=== PATIENT | female | born 1955 | race Caucasian/White ===

== ENCOUNTER 2016-07-04 17:08 | Observation (INO) | payer OTHER ==
[~2016-07-04] VITALS: Ht 162.6 cm; Wt 89.0 kg
[~2016-07-04 17:08] MED LIST: ALBU18HF IH; AMLO-147 PO; ASPI-805 PO; ATOR40TA68 PO; BUPR100T14 PO; CALC600T PO; CARV12.579 PO; CHOL2000 PO; CLOP75TA4 PO; GABA300C16 PO; GLIM4TAB PO; LEVO50TA74 PO; LISI20TA11 PO; METF1000 PO; METO10TA92 PO; OMEP40CA6 PO; RISP1TAB3 PO; SITA50TA2 PO
[2016-07-04] MEDS ORDERED: METHYLPREDNISOLONE 125 MG INJ IV STA (17:55)
[2016-07-04] MEDS ORDERED: ONDANSETRON 4 MG INJ IV STA (17:55)
[2016-07-04] MEDS ORDERED: IPRATROPIUM (NEB) 0.5 MG/2.5 ML AMP NEB STA (17:55)
[2016-07-04] MEDS ORDERED: HYDROmorphONE 1 MG/ML SYG IV STA (17:55)
[2016-07-04] MEDS ORDERED: ALBUTEROL 0.083% (NEB) 2.5 MG/3 ML AMP NEB STA (17:55)
[2016-07-04 18:25] LABS: ADD SCAN DIFF NO
[2016-07-04 18:27] LABS: BASOPHIL # 0.1 10^3/ul (0.0-0.1); BASOPHILS % 0.4 % (0.0-2.0); EOSINOPHILS # 0.1 10^3/ul (0.0-0.5); EOSINOPHILS % 0.6 % (0.0-7.0); HEMATOCRIT 45.5 % (37.0-47.0); HEMOGLOBIN 14.8 g/dl (12.0-16.0); LYMPHOCYTES % 23.9 % (15.0-51.0); MEAN CORPUSCULAR HEMOGLOBIN 29.3 pg (29.0-33.0); MEAN CORPUSCULAR HGB CONC 32.5 g/dl (32.0-37.0); MEAN CORPUSCULAR VOLUME 90.1 fl (82.0-101.0); MEAN PLATELET VOLUME 11.9 fl (7.4-10.4); MONOCYTE # 1.4 10^3/ul (0.3-0.9); MONOCYTES % 8.1 % (0.0-11.0); NEUTROPHIL # 11.3 10^3/ul (1.6-7.5); NEUTROPHILS % 66.6 % (39.0-77.0); PLATELET COUNT 371 10^3/UL (140-415); RED BLOOD COUNT 5.05 10^6/ul (4.20-5.40); RED CELL DISTRIBUTION WIDTH 13.6 % (11.5-14.5); WHITE BLOOD COUNT 16.9 10^3/ul (4.8-10.8)
[2016-07-04 18:39] LABS: CHLORIDE 102 mmol/L (97-110); POTASSIUM 4.3 mmol/L (3.5-5.1); SODIUM 139 mmol/L (135-144)
[2016-07-04 18:41] LABS: ALBUMIN/GLOBULIN RATIO 1.17; ANION GAP 17 (8-16); ASPARTATE AMINO TRANSFERASE 27 IU/L (15-46); BILIRUBIN,INDIRECT 0.2 mg/dl (0-1.1); BILIRUBIN,TOTAL 0.2 mg/dl (0.2-1.3); CARBON DIOXIDE 24 mmol/L (21-31); CREATININE 1.12 mg/dl (0.44-1.00); TOTAL PROTEIN 7.4 g/dl (6.1-8.1)
[2016-07-04 18:42] LABS: ALANINE AMINOTRANSFERASE 23 IU/L (13-69); ALKALINE PHOSPHATASE 63 IU/L (42-121); BLOOD UREA NITROGEN 20 mg/dl (7-20); CALCIUM 10.7 mg/dl (8.4-10.2); GLUCOSE 180 mg/dl (70-220)
[2016-07-04 18:49] LABS: B-TYPE NATRIURETIC PEPTIDE 108 PG/ML (0-125)
[2016-07-04] MEDS ORDERED: IOHEXOL 100 ML ONE (19:02)
[2016-07-04] MEDS ORDERED: SOD CHLORIDE 0.9% 100 ML ONE (19:02)
[2016-07-04 19:11] LABS: TROPONIN-I < 0.012 ng/ml (0.00-0.12)
--- NOTE | 2016-07-04 19:24 | RADRPT ---
PROCEDURE: US right upper quadrant CLINICAL INDICATION: Abdominal pain TECHNIQUE: Multiple real-time images were acquired of the patient's right upper abdomen utilizing a high resolution transducer. COMPARISON: None available FINDINGS: Liver: Increased echogenicity and enlarged with normal contour no evidence of mass or ductal dilata tion. Normal directional blood flow is seen within the patent main portal vein. The maximum dimensio n estimated at 21.3 cm . Gallbladder: Normal. No sonographic Romero's sign is reported. Common bile duct: Normal; 2.3 mm. There is no evidence for choledocholithiasis. Right Kidney: Normal; maximum length measured at approximately 11.5 cm. Pancreas: Obscured by bowel gas. RPTAT:HJJR IMPRESSION: 1. Hepatomegaly hepatic steatosis. 2. Unremarkable gallbladder. 3. Bowel gas obscures evaluation of the pancreas. Physician Deena Date Time Electronically viewed and signed by Physician Deena on 07/04/2016 19:23 /
[2016-07-04] MEDS ORDERED: ASPI81TA16 PO (19:51)
[2016-07-04] MEDS ORDERED: IBUP800T25 PO (19:54)
[2016-07-04] MEDS ORDERED: PANT40TA3 PO (19:57)
[2016-07-04] MEDS ORDERED: SITA100T8 PO (19:58)
[2016-07-04] MEDS ORDERED: MULT-761 PO (19:59)
[2016-07-04] MEDS ORDERED: CALC-277 PO (20:00)
[2016-07-04] MEDS ORDERED: AMLO5TAB4 PO (20:02)
[2016-07-04] MEDS ORDERED: MONT10TA24 PO (20:03)
[2016-07-04] MEDS ORDERED: GLIM2TAB PO (20:04)
[2016-07-04] MEDS ORDERED: ALPR1TAB7 PO (20:05)
[2016-07-04] MEDS ORDERED: ALBU18HF INHALATION (20:07)
--- NOTE | 2016-07-04 20:29 | RADRPT ---
PROCEDURE: CT Pulmonary Angiogram CLINICAL INDICATION: Chest pain, short of breath TECHNIQUE: Volumetric acquisition of the thorax was performed following the intravenous administra tion of contrast with the bolus of contrast time to maximize pulmonary artery opacification. One or more of the following dose reduction techniques were used: - Automated exposure control. - Adjustment of the mA and/or kV according to patient size. - Use of iterative reconstruction technique. Radiation Dose: CTDI = 111.57 mGy; DLP = 775.69 mGy-cm. COMPARISON: None. FINDINGS: Pulmonary Arteries: There is no intrinsic filling defect seen within the pulmonary arteries to sugge st pulmonary embolization. Other cardiovascular structures: The heart is normal in size. There is left ventricular hypertrophy .. The aorta appears intact and normal in caliber. Lung stone: The lung stone are clear with no nodule, infiltrate, or interstitial prominence. There is an accessory azygos lobe. The pleural spaces: No effusion or pneumothorax is identified. Lymph nodes: No pathologically enlarged nodes are evident. Thyroid: Unremarkable. Superior abdominal structures: No significant abnormality is evident. Osseous structures: Degenerative endplate changes are seen diffusely in the spine. IMPRESSION: 1. No evidence of pulmonary embolization. There is left ventricular hypertrophy without cardiomega ly. The aorta is normal in caliber and appears intact. 2. The lung stone and pleural spaces are clear. There is an accessory azygos lobe. 3. Mild degenerative spine changes. Physician Nael Date Time Electronically viewed and signed by Physician Nael on 07/04/2016 20:28 /
[2016-07-04] MEDS ORDERED: SOD CHLORIDE 0.9% 1,000 ML IV SCH (20:53)
--- NOTE | 2016-07-04 20:59 | ERA ---
ER Documentation Chief Complaint Date/Time DATE: 07/04/16 TIME: 20:55 Chief Complaint cp,ap,diarrhea since wednesday HPI This is a 61-year-old female who complains that 2-1/2 days ago she had a very sharp sudden right sided "lung" pain with some shortness of breath. She says since that time she has had some heavy pressure on her chest with some shortness of breath and exertional dyspnea. She said that she was told she has a mixture of asthma/COPD/emphysema by her cloth feeder but that he was not sure what she really had. She is at baseline she is not short of breath and has no exertional dyspnea. She says she has a chronic leukocytosis that is getting worked up over the past 2 years and it is not been able to be determined why she has elevated white blood count. The patient is COMPLAINING of some right upper quadrant pain with some diarrhea for the past 2 days. She says the pain in her right back is now gone but it was sharp and pleuritic initially. She states she has no vomiting nausea no cough no fever ROS All systems reviewed and are negative except as per history of present illness. Medications Home Meds Reported Medications Albuterol Sulfate* (Ventolin HFA*) 18 Gm Hfa.aer.ad, 2 PUFF INHALATION NEEDED , #1 INHALER 07/04/16 Alprazolam* (Alprazolam*) 1 Mg Tablet, 1 MG PO TID, TAB 07/04/16 Glimepiride* (Glimepiride*) 2 Mg Tablet, 2 MG PO WITH BREAKFAST, TAB 07/04/16 Montelukast Sodium* (Montelukast Sodium*) 10 Mg Tablet, 10 MG PO QHS, #30 TAB 07/04/16 Amlodipine Besylate* (Norvasc*) 5 Mg Tablet, 5 MG PO BID, TAB 07/04/16 Calcium Carbonate/Vitamin D3 (OYSTER SHELL 500 MG + VIT D TB) 1 Each Tablet, 1 EACH PO, TAB 07/04/16 Multivitamin (MULTI VITAMIN DAILY) 1 Each Tablet, 1 TAB PO DAILY, TAB 07/04/16 Sitagliptin* (Januvia*) 100 Mg Tablet, 100 MG PO DAILY, #30 TAB 07/04/16 Pantoprazole* (Protonix*) 40 Mg Tablet.dr, 40 MG PO DAILY, TAB 07/04/16 Aspirin (LOW DOSE ASPIRIN EC) 81 Mg Tablet.dr, 81 MG PO DAILY, #30 TAB 07/04/16 Risperidone* (Risperidone*) 1 Mg Tablet, 1 MG PO HS, TAB 10/25/14 Levothyroxine Sodium* (Levothyroxine Sodium*) 50 Mcg Tablet, 50 MCG PO AC BREAKFAST, TAB 10/25/14 Cholecalciferol* (Vitamin D3*) 2,000 Unit Cap, 2000 UNIT PO DAILY, CAP 10/25/14 Omeprazole* (Omeprazole*) 40 Mg Capsule.dr, 40 MG PO DAILY, CAP 10/25/14 Atorvastatin* (Atorvastatin*) 40 Mg Tablet, 40 MG PO HS, TAB 10/25/14 Metformin Hcl* (Metformin Hcl*) 1,000 Mg Tablet, 1000 MG PO WITH BREAKFAST, TAB 10/25/14 Clopidogrel Bisulfate* (Clopidogrel Bisulfate*) 75 Mg Tablet, 75 MG PO DAILY, TAB 10/25/14 Lisinopril* (Lisinopril*) 20 Mg Tablet, 20 MG PO DAILY, TAB 10/25/14 Carvedilol* (Carvedilol*) 12.5 Mg Tablet, 12.5 MG PO BID, TAB 10/25/14 Discontinued Reported Medications Ibuprofen* (Ibuprofen*) 800 Mg Tab, 800 MG PO TID, TAB 07/04/16 Calcium Carbonate (Oyster Shell Calcium) 600 Mg Tablet, 600 MG PO 10/25/14 Risperidone* (Risperidone*) 1 Mg Tablet, 1 MG PO HS, TAB 10/25/14 Bupropion Hcl* (Bupropion Hcl*) 100 Mg Tablet, 100 MG PO BID, TAB 10/25/14 Glimepiride* (Glimepiride*) 4 Mg Tablet, 4 MG PO WITH BREAKFAST, TAB 10/25/14 Sitagliptin* (Januvia*) 50 Mg Tablet, 50 MG PO DAILY, TAB 10/25/14 Aspirin* (Trimble Aspirin*) 81 Mg Tab.chew, 81 MG PO DAILY, TAB.CHEW 10/25/14 Metoclopramide* (Reglan*) 10 Mg Tablet, 10 MG PO Q6H Y for NAUSEA AND OR VOMITING, TAB 10/25/14 Amlodipine Besylate* (Amlodipine Besylate*) 10 Mg Tablet, 10 MG PO DAILY, TAB 10/25/14 Gabapentin* (Gabapentin*) 300 Mg Capsule, 300 MG PO TID, CAP 10/25/14 Glimepiride* (Glimepiride*) 4 Mg Tablet, 4 MG PO WITH BREAKFAST, TAB 10/25/14 Omeprazole* (Omeprazole*) 40 Mg Capsule.dr, 40 MG PO DAILY, CAP 10/25/14 Albuterol Sulfate* (Ventolin HFA*) 18 Gm Hfa.aer.ad, 2 PUFF IH Q4H Y for WHEEZING AND RESP DISTRESS, EA 10/25/14 Allergies Allergies: Coded Allergies: No Known Allergy (Unverified , 07/04/16) PMhx/Soc History of Surgery: Yes (, CARDIAC CATHETERIZATION 1 YR AGO, TOES REMOVED 20 YEARS AGO) Anesthesia Reaction: No Hx Neurological Disorder: Yes (NUMBNESS IN LEFT ARM) Hx Respiratory Disorders: No Hx Cardiac Disorders: Yes (HTN, "PRESSURE IN HEART") Hx Psychiatric Problems: Yes (DEPRESSION) Hx Miscellaneous Medical Probl: No Hx Alcohol Use: No Hx Substance Use: No Hx Tobacco Use: No Smoking Status: Never smoker FmHx Family History: No coronary disease Physical Exam Vitals Vital Signs Date Time Temp Pulse Resp B/P Pulse Ox O2 Delivery O2 Flow Rate FiO2 07/04/16 18:11 78 18 98 21 07/04/16 17:14 98.1 78 18 129/77 98 Physical Exam Const: Well-developed, well-nourished Head: Atraumatic, normocephalic Eyes: Normal Conjunctiva, PERRLA, EOMI, normal sclera, no nystagmus ENT: Normal External Ears, Nose and Mouth, moist mucus membranes. Neck: Full range of motion. No meningismus, no lymphadenopathy. Resp: Clear to auscultation bilaterally with somewhat distant breath sounds, no wheezing, rhonchi, rales Cardio: Regular rate and rhythm, no murmurs, S1 S2 present Abd: Soft, mild right upper quadrant tenderness to palpation, non distended. Normal bowel sounds, no guarding or rebound, no pulsitile abdominal masses or bruits Skin: No petechiae or rashes, no ecchymosis , no maculopapular rash Back: No midline or flank tenderness Ext: No cyanosis, or edema, FROM x 4, normal inspection, neurovascularly intact x 4 Neur: Awake and alert, STR 5/5 x 4, sensation intact x 4, no focal findings, cerebellum intact Psych: Normal Mood and Affect, bit anxious Result Diagram: 07/04/16181707/04/161817 Results 24 hrs Laboratory Tests Test 07/04/16 18:18 White Blood Count 16.910^3/ul Red Blood Count 5.0510^6/ul Hemoglobin 14.8g/dl Hematocrit 45.5% Mean Corpuscular Volume 90.1fl Mean Corpuscular Hemoglobin 29.3pg Mean Corpuscular Hemoglobin Concent 32.5g/dl Red Cell Distribution Width 13.6% Platelet Count 44068^3/UL Mean Platelet Volume 11.9fl Neutrophils % 66.6% Lymphocytes % 23.9% Monocytes % 8.1% Eosinophils % 0.6% Basophils % 0.4% Nucleated Red Blood Cells % 0.0/100WBC Neutrophils # 11.310^3/ul Lymphocytes # 4.010^3/ul Monocytes # 1.410^3/ul Eosinophils # 0.110^3/ul Basophils # 0.110^3/ul Nucleated Red Blood Cells # 0.010^3/ul Sodium Level 139mmol/L Potassium Level 4.3mmol/L Chloride Level 102mmol/L Carbon Dioxide Level 24mmol/L Anion Gap 17 Blood Urea Nitrogen 20mg/dl Creatinine 1.12mg/dl Glucose Level 180mg/dl Calcium Level 10.7mg/dl Total Bilirubin 0.2mg/dl Direct Bilirubin 0.00mg/dl Indirect Bilirubin 0.2mg/dl Aspartate Amino Transf (AST/SGOT) 27IU/L Alanine Aminotransferase (ALT/SGPT) 23IU/L Alkaline Phosphatase 63IU/L Troponin I < 0.012ng/ml B-Type Natriuretic Peptide 108PG/ML Total Protein 7.4g/dl Albumin 4.0g/dl Globulin 3.40g/dl Albumin/Globulin Ratio 1.17 Lipase 71U/L Current Medications Medications (Trade) Dose Ordered Sig/Lico Route PRN Reason Start Time Stop Time Status Last Admin Dose Admin Albuterol (Proventil 0.083% (Neb)) 7.5 mg ONCE STAT NEB 07/04/16 17:55 07/04/16 18:00 DC 07/04/16 18:10 Ipratropium [place] (Atrovent 0.02% (Neb)) 1.5 mg ONCE STAT NEB 07/04/16 17:55 07/04/16 18:00 DC 07/04/16 18:10 Methylprednisolone Sodium Succinate (Solu-Medrol) 125 mg ONCE STAT IV 07/04/16 17:55 07/04/16 18:00 DC 07/04/16 18:13 Hydromorphone HCl (Dilaudid) 1 mg ONCE STAT IV 07/04/16 17:55 07/04/16 18:00 DC 07/04/16 18:14 Ondansetron HCl 4 mg 4 mg ONCE STAT IV 07/04/16 17:55 07/04/16 18:00 DC 07/04/16 18:13 Iohexol 100 ml @ ud STK-MED ONCE .ROUTE 07/04/16 19:02 07/04/16 19:03 DC Sodium Chloride (NS) 100 ml @ ud STK-MED ONCE .ROUTE 07/04/16 19:02 07/04/16 19:03 DC Procedures/MDM PROCEDURE: CT Pulmonary Angiogram CLINICAL INDICATION: Chest pain, short of breath TECHNIQUE: Volumetric acquisition of the thorax was performed following the intravenous administration of contrast with the bolus of contrast time to maximize pulmonary artery opacification. One or more of the following dose reduction techniques were used: - Automated exposure control. - Adjustment of the mA and/or kV according to patient size. - Use of iterative reconstruction technique. Radiation Dose: CTDI = 111.57 mGy; DLP = 775.69 mGy-cm. COMPARISON: None. FINDINGS: Pulmonary Arteries: There is no intrinsic filling defect seen within the pulmonary arteries to suggest pulmonary embolization. Other cardiovascular structures: The heart is normal in size. There is left ventricular hypertrophy.. The aorta appears intact and normal in caliber. Lung stone: The lung stone are clear with no nodule, infiltrate, or interstitial prominence. There is an accessory azygos lobe. The pleural spaces: No effusion or pneumothorax is identified. Lymph nodes: No pathologically enlarged nodes are evident. Thyroid: Unremarkable. Superior abdominal structures: No significant abnormality is evident. Osseous structures: Degenerative endplate changes are seen diffusely in the spine. IMPRESSION: 1. No evidence of pulmonary embolization. There is left ventricular hypertrophy without cardiomegaly. The aorta is normal in caliber and appears intact. 2. The lung stone and pleural spaces are clear. There is an accessory azygos lobe. 3. Mild degenerative spine changes. Josr Sky Physician Date Time Electronically viewed and signed by Physician Nael on 07/04/2016 20:28 RH/ CC: BRISEIDA ALEMAN DO PROCEDURE: US right upper quadrant CLINICAL INDICATION: Abdominal pain TECHNIQUE: Multiple real-time images were acquired of the patient's right upper abdomen utilizing a high resolution transducer. COMPARISON: None available FINDINGS: Liver: Increased echogenicity and enlarged with normal contour no evidence of mass or ductal dilatation. Normal directional blood flow is seen within the patent main portal vein. The maximum dimension estimated at 21.3 cm . Gallbladder: Normal. No sonographic Romero's sign is reported. Common bile duct: Normal; 2.3 mm. There is no evidence for choledocholithiasis. Right Kidney: Normal; maximum length measured at approximately 11.5 cm. Pancreas: Obscured by bowel gas. RPTAT:HJJR IMPRESSION: 1. Hepatomegaly hepatic steatosis. 2. Unremarkable gallbladder. 3. Bowel gas obscures evaluation of the pancreas. Adeel Charlton Physician Date Time Electronically viewed and signed by Physician Deena on 07/04/2016 19:23 JR/ CC: BRISEIDA ALEMAN DO EKG: Rate/Rhythm: Normal Sinus Rhythm,NL intervals QRS, ST, QT: NORMAL [place], QRS, QT] Impression: NORMAL EKG Patient's pain shows no signs of PE no pneumonia. White blood count 16.9 which is consistent with her chronic leukocytosis. She is says she is short of breath more than usual having some chest pain will rule out TX as well as work on her lungs with some breathing treatments per Patient's symptoms are concerning for cardiac cause will require inpatient workup and continuous monitoring. Further w/u for ischemia, arrhythmia, PE or dissection will be deferred to the inpatient team. Accepting Care Team: Current data and ongoing care discussed. Time: Time of admission Primary Provider: [XOXOXO] Consulting: [XOXOXO] Outstanding Data: none Departure Diagnosis: Primary Impression: Chest pain Qualified Code: R07.9 - Chest pain, unspecified type Additional Impressions: Dyspnea Qualified Code: R06.09 - Dyspnea on exertion Diarrhea Qualified Code: R19.7 - Diarrhea, unspecified type Condition: Stable BRISEIDA ALEMAN DO Jul 04, 2016 20:59
[2016-07-04] MEDS ORDERED: ONDANSETRON 4 MG INJ IV PRN (21:00)
[2016-07-04] MEDS ORDERED: ACETAMINOPHEN 325 MG TAB PO PRN ×2 (21:00→21:30)
[2016-07-04] MEDS ORDERED: ALBUTEROL/IPRATROPIUM (NEB) 3 ML AMP HHN STA (21:22)
--- NOTE | 2016-07-04 21:26 | HP ---
Date/Time of Note Date/Time of Note DATE: 07/04/16 TIME: 21:22 Assessment/Plan VTE Prophylaxis VTE Prophylaxis Intervention: other (Lovenox) Assessment/Plan Assessment/Plan 1) Chest Pain - likely musculoskeletal source, aggravated by anxiety, based on my exam - Admit to Telemetry - Serial Enzymes and repeat EKG in AM - doubt Cardiac - AM Labs: CBC, BMP, Magnesium - CONSULT: Cardiology - Dr. Lloyd . . . consider whether patient should have a 3rd Cardiac Cath or continue with medical management, or perhaps another test 2) Dyspnea - likely due to COPD and Anxiety - DuoNebs QID - Levalbuteral Nebs Q 2 hours prn SOB or Wheeze 3) Anxiety and Insomnia - Patient is educated to take deep breaths in through her nose and out through her mouth if she feels anxious or nervous. - Ativan 2 mg at HS prn Insomnia . . . should help with her Anxiety in general - Additional Ativan during the day as needed for flares of Anxiety 4) Diarrhea - of unknown significance. I suspect it is more psychosomatic rather than pathological, maybe even just a sensitive gastrocolic reflex - Monitor 3) Diabetes Mellitus, unknown control - HgbA1c in AM - Constant Carb Diet - AccuCheks AC and HS - Resume Home meds except Januvia will have to be subsituted by the Pharmacy or patient can be on an Insulin Sliding Scale 5) Hypertension, seems controlled on current regimen - Continue Current Medications 6) Hypothyroidism - Continue Levothyroxine 50 mcg daily - TSH in AM HPI/ROS Admit Date/Time Admit Date/Time 07/04/162052 Hx of Present Illness Chief Complaint cp,ap,diarrhea since wednesday HPI Patient presents with multiple complaints. She is a very difficult historian as when I ask her questions about her first concern, she immediately starts talking about her next concern and so on. I needed to re-focus her several times so that I could take her history. It seems that she had pain in the right side of her chest, worse when taking a breath, for the past 6 days. Friends kept telling her to be seen by a doctor. The pain went away for 1 day. In the past 24 hours, the pain started on the left side of her chest and now on the right side again. No injury. Pain is aggravated with deep breaths. Very concerned as there is "a blockage in my heart". I had reviewed the previous records and saw that patient had an angiogram in October 2014, but it was inconclusive as reported by Dr. MUSA CROOK MD, in his dictated words: "The procedure was not completed due to the fact that it was extremely difficult to maneuver the catheter. The patient's procedure will require to be redone through the groin. However, the patient refused. As a result, the patient was discharged home. From what I was able to visualize, which was not conclusive because it was only in 1 view, it appeared that the patient had a patent left main as well as a patent left anterior descending; however, it was not fully engaged. As a result, it is inconclusive at this point. IMPRESSION: Inconclusive results from left heart catheterization. The patient is required to have another left heart catheterization from the groin access." Patient tells me that she had a prior angiogram at [facility] , but they too, were unable to complete the procedure. Patient complains of difficulty breathing, hard to catch her breath. Hard to take a deep breath. Occasional dry cough. No fever or chills. She was seen once by a [employer] who told her that she could have Asthma, COPD or Emphysema, but that he wasn't sure. When I talked to patient about getting breathing treatments, she wondered why, and as I tried to explain about her lung problems , she stated she is not sure that she has any as she does not think that [employer] knew what he was doing because he couldn't tell her what she had. I suggested to her that based on her smoking daily since she was 11 years old that we can assume she at least has COPD and treat her for that. She told me her lungs are fine and that she never had problems with them before. I pointed out that smoking causes cumulative and on-going damage and that it would be a good idea to be treated while we work-up and manage her other concerns. She also complains of watery diarrhea every time she eats for the past 2 days. There is no blood or mucus in it. She has not had any fever or chills and she has no history of IBS or frequent or alternating diarrhea and/or constipation. She complained of right upper quadrant pain to the ER Physician and a Gallbladder Ultrasound was performed: NEGATIVE. No nausea or vomiting She complains about always being sick and wonders why. She complains that she is on so many medication - her diabetes is "bad" but she does not know what a Hgb A1c is, let alone what hers is. She talks about how bad her blood pressure is and all the medications she is on and about the blockage in her heart. I asked her about how she knew there was a blockage, and she brought up the angiograms. I reminded her that they were inconclusive. I asked patient how long has she been sick. She said since 2009. I asked her what happened then. She states her son was killed in 2002 and she was laid off in 2009. I talked to her about stress and anxiety having physical manifestations. I reminded how I was able to palpate her chest wall and reproduce the pain she was sure was coming from her heart and lungs. I talked to her about anxiety and panic having overlapping symptoms with heart attacks and that any of the symptoms, from whatever cause, can trigger anxiety and the symptoms snowball. She said "but I am not crazy". I reassured her that was not what I was saying . . . just that emotions and stress that are difficult to manage often present themselves with physical manifestations. I reassured patient that while we are looking into medical causes for her symptoms, we may find that some, many or all may be psychosomatic. I confirmed with her that she knew what that word meant. Meanwhile, I told patient that she should get a good night's sleep, so I will give her some medication. She states that she can fall asleep but that she wakes up. I offered her Restoril, and she told me that it didn't work. She didn' t know if it was the max, 30 mg, but that she didn't want to try it. She has some Xanax that was recently prescribed. I suggested 2 mg of Ativan at HS prn Insomnia. She said again that she falls asleep fine, but wakes up later. I reminded her that I had told her that she is a very anxious person. I tried to persuade her to relax. to know that she is being evaluated medically and that there is good news in knowing that the pain she has been experiencing lately is not due to her heart and I wished her a good night. Also, per the ER doctor, patient states her white count is always elevated, but over 2 years, no one has figured out why. I did not bring up this topic with her as we already talked extensively about the issues that brought her into the ER tonight. ROS General: Admits: Denies: Fever, Chills, Poor Appetite, Generalized Body Aches Eyes: Admits: Intermittent Blurry Vision and/or Spots in her vision (I told her those can happen when her sugar fluctuates Denies: Double Vision HENT: Admits: Right Ear Prssure, Stuffy Nose Denies: Ear Pain, Runny Nose, Sore Throat Cardiovascular: Admits: Chest Pain, Palpitations Denies: Leg Swelling Pulmonary: Admits: Cough, Shortness of Breath Denies: Wheeze Gastrointestinal: Admits: Abdominal Pain, Diarrhea Denies: Nausea, Vomiting, Blood in Stool, Black- Colored Stool (I asked patient if she ever had a colonoscopy and she immediately said "no, I don't want one". I told her I was only asking her a question.) Urogenital: Admits: Denies: Burning with Urination, Urinary Frequency Musculoskeletal: Admits: Denies: Joint Pain, Joint Swelling, Muscle Pain Neurological: Admits: Denies: Headache, Dizziness, Numbness, Tingling, Shooting Pains Integumentary: Admits: Denies: Rash, Itch Endocrine: Admits: Denies: Excessive Thirst, Excessive Hunger, Intolerant to Cold , Intolerant to Heat Psychiatric: Admits: Anxiety, Depression Denies: PMH/Family/Social Past Medical History DM; HTN; Dyslipidemia; Hypothyroidism; Depression Past Surgical History Section; Cardiac Catheterization on 10/25/14 (records reviewed: IMPRESSION: Inconclusive results from left heart catheterization. The patient is required to have another left heart catheterization from the groin access. Toes Removed 20 years Ago Social History Alcohol Use: none Smoking Status: Current every day smoker (1/2 ppd since age 11 (less when she is sick) = 25 pack-year history) Drug Use: none Exam/Review of Systems Vital Signs Vitals Vital Signs Date Time Temp Pulse Resp B/P Pulse Ox O2 Delivery O2 Flow Rate FiO2 07/04/16 21:14 63 18 117/97 98 Room Air 07/04/16 18:11 21 07/04/16 17:14 98.1 Exam Exam General: Overweight female who is in mild to moderate distress due to feeling anxious about her conditions, Alert and oriented. In no acute distress. Eyes: Sclera White, EOMI HENT: Normocephalic/Atraumatic, External Ears/Nose Normal, Moist Mucus Membranes Neck: Supple, Trachea Midline Cardiovascular: Normal Rate, Normal Rhythm, Normal S1 and S2, No Murmur, No Extra Sounds. No pedal edema. Radial and Dorsalis Pedis Pulses +2/4 and regular. Pulmonary: Decreased airflow throughout notable for coarse breath sounds. Normal Respiratory Effort, No Rales, Rhonchi or Wheezes Gastrointestinal: Normoactive Bowel Sounds, Soft, Mild generalized tenderness, upper worse than lower. No guarding or rebound. Non-Distended, No Hepatosplenomegaly Appreciated, No Pulsatile Masses Urogenital: Deferred Musculoskeletal: Normal Muscle Bulk and Tone. Reproducible chest pain with palpation over the sore areas of her chest wall, both on the right and left. Neurological: CN II - XII Grossly Intact, Non-Focal, Speech Normal Integumentary: Normal Moisture and Temperature, Good Turgor, No Jaundice, No Rash. No bruising Lymphatic: No Cervical Lymphadenopathy Psychiatric: Anxious Mood and Appropriate Affect, Good Eye Contact Labs Result Diagram: 07/04/16181707/04/161817 Medications Medications Home Meds Reported Medications Albuterol Sulfate* (Ventolin HFA*) 18 Gm Hfa.aer.ad, 2 PUFF INHALATION NEEDED , #1 INHALER 07/04/16 Alprazolam* (Alprazolam*) 1 Mg Tablet, 1 MG PO TID, TAB 07/04/16 Glimepiride* (Glimepiride*) 2 Mg Tablet, 2 MG PO WITH BREAKFAST, TAB 07/04/16 Montelukast Sodium* (Montelukast Sodium*) 10 Mg Tablet, 10 MG PO QHS, #30 TAB 07/04/16 Amlodipine Besylate* (Norvasc*) 5 Mg Tablet, 5 MG PO BID, TAB 07/04/16 Calcium Carbonate/Vitamin D3 (OYSTER SHELL 500 MG + VIT D TB) 1 Each Tablet, 1 EACH PO, TAB 07/04/16 Multivitamin (MULTI VITAMIN DAILY) 1 Each Tablet, 1 TAB PO DAILY, TAB 07/04/16 Sitagliptin* (Januvia*) 100 Mg Tablet, 100 MG PO DAILY, #30 TAB 07/04/16 Pantoprazole* (Protonix*) 40 Mg Tablet.dr, 40 MG PO DAILY, TAB 07/04/16 Aspirin (LOW DOSE ASPIRIN EC) 81 Mg Tablet.dr, 81 MG PO DAILY, #30 TAB 07/04/16 Risperidone* (Risperidone*) 1 Mg Tablet, 1 MG PO HS, TAB 10/25/14 Levothyroxine Sodium* (Levothyroxine Sodium*) 50 Mcg Tablet, 50 MCG PO AC BREAKFAST, TAB 10/25/14 Cholecalciferol* (Vitamin D3*) 2,000 Unit Cap, 2000 UNIT PO DAILY, CAP 10/25/14 Omeprazole* (Omeprazole*) 40 Mg Capsule.dr, 40 MG PO DAILY, CAP 10/25/14 Atorvastatin* (Atorvastatin*) 40 Mg Tablet, 40 MG PO HS, TAB 10/25/14 Metformin Hcl* (Metformin Hcl*) 1,000 Mg Tablet, 1000 MG PO WITH BREAKFAST, TAB 10/25/14 Clopidogrel Bisulfate* (Clopidogrel Bisulfate*) 75 Mg Tablet, 75 MG PO DAILY, TAB 10/25/14 Lisinopril* (Lisinopril*) 20 Mg Tablet, 20 MG PO DAILY, TAB 10/25/14 Carvedilol* (Carvedilol*) 12.5 Mg Tablet, 12.5 MG PO BID, TAB 10/25/14 Discontinued Reported Medications Ibuprofen* (Ibuprofen*) 800 Mg Tab, 800 MG PO TID, TAB 07/04/16 Calcium Carbonate ([place] Calcium) 600 Mg Tablet, 600 MG PO 10/25/14 Risperidone* (Risperidone*) 1 Mg Tablet, 1 MG PO HS, TAB 10/25/14 Bupropion Hcl* (Bupropion Hcl*) 100 Mg Tablet, 100 MG PO BID, TAB 10/25/14 Glimepiride* (Glimepiride*) 4 Mg Tablet, 4 MG PO WITH BREAKFAST, TAB 10/25/14 Sitagliptin* (Januvia*) 50 Mg Tablet, 50 MG PO DAILY, TAB 10/25/14 Aspirin* ([place] Aspirin*) 81 Mg Tab.chew, 81 MG PO DAILY, TAB.CHEW 10/25/14 Metoclopramide* (Reglan*) 10 Mg Tablet, 10 MG PO Q6H Y for NAUSEA AND OR VOMITING, TAB 10/25/14 Amlodipine Besylate* (Amlodipine Besylate*) 10 Mg Tablet, 10 MG PO DAILY, TAB 10/25/14 Gabapentin* (Gabapentin*) 300 Mg Capsule, 300 MG PO TID, CAP 10/25/14 Glimepiride* (Glimepiride*) 4 Mg Tablet, 4 MG PO WITH BREAKFAST, TAB 10/25/14 Omeprazole* (Omeprazole*) 40 Mg Capsule.dr, 40 MG PO DAILY, CAP 10/25/14 Albuterol Sulfate* (Ventolin HFA*) 18 Gm Hfa.aer.ad, 2 PUFF IH Q4H Y for WHEEZING AND RESP DISTRESS, EA 10/25/14 Current Medications Medications (Trade) Dose Ordered Sig/Lico Route PRN Reason Start Time Stop Time Status Last Admin Dose Admin Albuterol (Proventil 0.083% (Neb)) 7.5 mg ONCE STAT NEB 07/04/16 17:55 07/04/16 18:00 DC 07/04/16 18:10 Ipratropium [place] (Atrovent 0.02% (Neb)) 1.5 mg ONCE STAT NEB 07/04/16 17:55 07/04/16 18:00 DC 07/04/16 18:10 Methylprednisolone Sodium Succinate (Solu-Medrol) 125 mg ONCE STAT IV 07/04/16 17:55 07/04/16 18:00 DC 07/04/16 18:13 Hydromorphone HCl (Dilaudid) 1 mg ONCE STAT IV 07/04/16 17:55 07/04/16 18:00 DC 07/04/16 18:14 Ondansetron HCl 4 mg 4 mg ONCE STAT IV 07/04/16 17:55 07/04/16 18:00 DC 07/04/16 18:13 Iohexol 100 ml @ STK-MED ONCE .ROUTE 07/04/16 19:02 07/04/16 19:03 DC Sodium Chloride (NS) 100 ml @ STK-MED ONCE .ROUTE 07/04/16 19:02 07/04/16 19:03 DC Procedures Procedures Laboratory Tests Test 07/04/16 18:18 White Blood Count 16.910^3/ul Red Blood Count 5.0510^6/ul Hemoglobin 14.8g/dl Hematocrit 45.5% Mean Corpuscular Volume 90.1fl Mean Corpuscular Hemoglobin 29.3pg Mean Corpuscular Hemoglobin Concent 32.5g/dl Red Cell Distribution Width 13.6% Platelet Count 46935^3/UL Mean Platelet Volume 11.9fl Neutrophils % 66.6% Lymphocytes % 23.9% Monocytes % 8.1% Eosinophils % 0.6% Basophils % 0.4% Nucleated Red Blood Cells % 0.0/100WBC Neutrophils # 11.310^3/ul Lymphocytes # 4.010^3/ul Monocytes # 1.410^3/ul Eosinophils # 0.110^3/ul Basophils # 0.110^3/ul Nucleated Red Blood Cells # 0.010^3/ul Sodium Level 139mmol/L Potassium Level 4.3mmol/L Chloride Level 102mmol/L Carbon Dioxide Level 24mmol/L Anion Gap 17 Blood Urea Nitrogen 20mg/dl Creatinine 1.12mg/dl Glucose Level 180mg/dl Calcium Level 10.7mg/dl Total Bilirubin 0.2mg/dl Direct Bilirubin 0.00mg/dl Indirect Bilirubin 0.2mg/dl Aspartate Amino Transf (AST/SGOT) 27IU/L Alanine Aminotransferase (ALT/SGPT) 23IU/L Alkaline Phosphatase 63IU/L Troponin I < 0.012ng/ml B-Type Natriuretic Peptide 108PG/ML Total Protein 7.4g/dl Albumin 4.0g/dl Globulin 3.40g/dl Albumin/Globulin Ratio 1.17 Lipase 71U/L EKG: As interpreted by ER Physician Rate/Rhythm: Normal Sinus Rhythm, NL intervals QRS, ST, QT: NORMAL IN, QRS, QT] Impression: NORMAL EKG RADIOLOGY: PROCEDURE: CT Pulmonary Angiogram CLINICAL INDICATION: Chest pain, short of breath COMPARISON: None. IMPRESSION: 1. No evidence of pulmonary embolization. There is left ventricular hypertrophy without cardiomegaly. The aorta is normal in caliber and appears intact. 2. The lung stone and pleural spaces are clear. There is an accessory azygos lobe. 3. Mild degenerative spine changes. PROCEDURE: US right upper quadrant CLINICAL INDICATION: Abdominal pain IMPRESSION: 1. Hepatomegaly hepatic steatosis. 2. Unremarkable gallbladder. 3. Bowel gas obscures evaluation of the pancreas. ESTEBAN JIMENEZ DO Jul 04, 2016 21:26
[2016-07-04] MEDS ORDERED: NITROGLYCERIN (SL) 0.4 MG TAB SL PRN (21:30)
[2016-07-04] MEDS ORDERED: METOCLOPRAMIDE 10 MG INJ IV PRN (21:30)
[2016-07-04] MEDS ORDERED: NACL 0.9% 3 ML SYG IV SCH (21:30)
[2016-07-04] MEDS ORDERED: LORAZEPAM 0.5 MG TAB PO PRN (21:30)
[2016-07-04 21:35] VITALS: BP 146/71; PULSE 88; RESP 18
[2016-07-04 21:55] VITALS: Ht 162.6 cm; Wt 89.0 kg
[2016-07-04 22:12] VITALS: PULSE 67
[2016-07-04] MEDS: LORAZEPAM 1 MG TAB PO PRN (22:51)
[2016-07-04] MEDS: FAMOTIDINE 20 MG TAB PO SCH (22:52)
[2016-07-04] MEDS: AMLODIPINE 5 MG TAB PO SCH (22:52)
[2016-07-04] MEDS ORDERED: LEVALBUTEROL (NEB) 1.25 MG/0.5 ML AMP HHN PRN (23:00)
[2016-07-04 23:17] LABS: CREATINE KINASE 50 IU/L (23-200)
[2016-07-04 23:26] LABS: CK-MB 0.43 ng/ml (0.0-2.4)
[2016-07-05] VITALS (13 sets, daily range): BP systolic 115–142; BP diastolic 61–80; PULSE 61–102; RESP 18–20
[2016-07-05 00:17] LABS: TROPONIN-I < 0.012 ng/ml (0.00-0.12)
[2016-07-05 04:00] LABS: ADD SCAN DIFF NO
[2016-07-05 04:06] LABS: BASOPHILS % 0.2 % (0.0-2.0); HEMATOCRIT 39.5 % (37.0-47.0); LYMPHOCYTES # 1.5 10^3/ul (0.8-2.9); LYMPHOCYTES % 11.4 % (15.0-51.0); MEAN CORPUSCULAR HEMOGLOBIN 29.9 pg (29.0-33.0); MEAN CORPUSCULAR HGB CONC 32.9 g/dl (32.0-37.0); MEAN CORPUSCULAR VOLUME 90.8 fl (82.0-101.0); MEAN PLATELET VOLUME 12.2 fl (7.4-10.4); MONOCYTE # 0.1 10^3/ul (0.3-0.9); NEUTROPHIL # 11.6 10^3/ul (1.6-7.5); NEUTROPHILS % 86.7 % (39.0-77.0); PLATELET COUNT 285 10^3/UL (140-415); RED BLOOD COUNT 4.35 10^6/ul (4.20-5.40); RED CELL DISTRIBUTION WIDTH 13.8 % (11.5-14.5); WHITE BLOOD COUNT 13.4 10^3/ul (4.8-10.8)
[2016-07-05 04:18] LABS: POTASSIUM 4.7 mmol/L (3.5-5.1)
[2016-07-05 04:20] LABS: CREATINE KINASE 52 IU/L (23-200); CREATININE 1.18 mg/dl (0.44-1.00)
[2016-07-05 04:21] LABS: CALCIUM 9.9 mg/dl (8.4-10.2); MAGNESIUM 1.8 mg/dl (1.7-2.5)
[2016-07-05 04:22] LABS: CHOL/HDL RATIO 2.6 RATIO
[2016-07-05 04:29] LABS: CK-MB 0.47 ng/ml (0.0-2.4)
[2016-07-05 04:53] LABS: THYROID STIMULATING HORMONE 1.34 MIU/L (0.465-4.680)
[2016-07-05 04:59] LABS: TROPONIN-I < 0.012 ng/ml (0.00-0.12)
[2016-07-05] MEDS ORDERED: GLUCOSE GEL 15 GRAM TUBE PO PRN ×2 (05:00)
[2016-07-05] MEDS ORDERED: GLUCAGON 1 MG INJ IM PRN (05:00)
[2016-07-05] MEDS ORDERED: DEXTROSE 50% 50 ML SYRINGE IV PRN ×2 (05:00)
[2016-07-05] MEDS ORDERED: GLUCOSE GEL 15 GRAM TUBE BUCCAL PRN (05:00)
[2016-07-05] MEDS ORDERED: INSULIN ASPART [NOVOLOG] 3 ML PEN SC ONE (05:30)
[2016-07-05] MEDS: LEVOTHYROXINE 50 MCG TAB PO SCH ×2 (06:02→06:06)
[2016-07-05] MEDS: metFORMIN 500 MG TAB PO SCH (08:00)
[2016-07-05] MEDS ORDERED: GLIMEPIRIDE 2 MG TAB PO SCH (08:00)
[2016-07-05] MEDS: CALCIUM/VITAMIN D (500/200) TAB PO SCH ×3 (08:25→20:38)
[2016-07-05] MEDS: CLOPIDOGREL 75 MG TAB PO SCH (08:25)
[2016-07-05] MEDS: CHOLECALCIFEROL 2,000 UNIT CAP PO SCH (08:25)
[2016-07-05] MEDS: FAMOTIDINE 20 MG TAB PO SCH ×2 (08:25→20:38)
[2016-07-05] MEDS: ASPIRIN (EC) 81 MG TAB PO SCH (08:25)
[2016-07-05] MEDS: LISINOPRIL 20 MG TAB PO SCH (08:26)
[2016-07-05] MEDS: LINAGLIPTIN 5 MG TABLET PO SCH (08:26)
[2016-07-05] MEDS: AMLODIPINE 5 MG TAB PO SCH ×2 (08:26→20:38)
[2016-07-05] MEDS: MULTIVITAMINS THERAPEUTIC TAB PO SCH (08:26)
[2016-07-05] MEDS: INSULIN GLARGINE [LANtus] 3 ML PEN SC SCH ×2 (08:28→20:43)
[2016-07-05] MEDS: INSULIN ASPART [NOVOLOG] 3 ML PEN SC SCH ×4 (08:29→20:50)
[2016-07-05] MEDS ORDERED: NON-FORMULARY/PATIENT OWN MED (Sitagliptin* (Januvia*) 100 MG) PO SCH (09:00)
--- NOTE | 2016-07-05 11:34 | RADRPT ---
Vent Rate: 79 bpm RR Interval: 0 msec CA Interval: 170 msec QRS Duration: 82 msec QT Interval: 386 msec QTC Interval: 442 msec P-R-T [place]: 47 - 51 - 74 degrees Normal sinus rhythm Normal ECG No previous tracing available for comparison Electronically Signed By: Fly Markham [id number]
[2016-07-05] MEDS: NICOTINE (21 MG/24 HR) PATCH TRANSDERM SCH (17:58)
[2016-07-05] MEDS: SOD CHLORIDE 0.9% 1,000 ML IV SCH (17:59)
--- NOTE | 2016-07-05 18:57 | PN ---
Date/Time of Note Date/Time of Note DATE: 07/05/16 TIME: 18:30 Assessment/Plan VTE Prophylaxis VTE Prophylaxis Intervention: SCD's Lines/Catheters IV Catheter Type (from Nrsg): Saline Lock Assessment/Plan Assessment/Plan 61 yo F with 1. Non specific CP: ACS has been ruled out / likely 2/2 anxiety * Cath did not show CAD, patient had tortous arteries and cath was unsuccessful. NO DOCUMENTATION OF CAD * Patient had recent negative stress test with Dr Lloyd 2. Severe anxiety 3. COPD without exacerbation 4. Poorly controlled DM2 : A1c 8.1 5. HTN: suboptimal control 6. Hypothyroidism 7. ARF r/o CKD from DM nephropathy 8. Obesity 9. Tobacco abuse 10. Leucocytosis : likely stress induced PLAN: * IV hydration and eval renal function in am * Titrate hypoglycemics and antihypertensives for better control * Continue current meds * Telepsychiatry review for severe anxiety * Consult cardiology and review recs * UA to eval for occult infection * Bronchodilator therapy PRN * Supportive care PROPHYLAXIS: SCDs / pepcid Subjective 24 Hr Interval Summary Free Text/Dictation * Multiple complaints * Very anxious about symptoms. It seems to be dawning on her the extent of her diseases. She's agreeable to telepsych. She states her PCP has been trying to get her to see a psychiatrist without success * Her chest pain is improved at this time * She has never been told she has renal disease. * Also reports diarrhea that was previously just water, but now has some stool mixed in. * Coughing ++ / chronic smoker * wants to reduce number of meds Exam/Review of Systems Vital Signs Vitals Vital Signs Date Time Temp Pulse Resp B/P Pulse Ox O2 Delivery O2 Flow Rate FiO2 07/05/16 16:45 75 20 94 21 07/05/16 16:40 97.0 129/75 07/04/16 21:35 Room Air Exam Constitutional: alert, obese, oriented Psych: anxiety (++) Head: normocephalic Eyes: PERRL, nl conjunctiva, No icteric ENMT: mucosa pink and moist Neck: supple Respiratory: clear to auscultation, diminished breath sounds, No wheezing Cardiovascular: regular rate and rhythm, No murmurs/extra sounds Gastrointestinal: bowel sounds, non-tender, other (obese), soft Extremities: No edema Neurological: nl mental status, nl speech, No focal weakness Results Result Diagram: 07/05/16 0343 07/05/16 0343 Results 24 hrs Laboratory Tests Test 07/04/16 22:45 07/05/16 03:43 07/05/16 04:29 07/05/16 08:18 Creatine Kinase 50 52 Creatine Kinase Index 0.9 0.9 Creatinine Kinase MB (Mass) 0.43 0.47 Troponin I < 0.012 < 0.012 White Blood Count 13.4 #H Red Blood Count 4.35 Hemoglobin 13.0 Hematocrit 39.5 Mean Corpuscular Volume 90.8 Mean Corpuscular Hemoglobin 29.9 Mean Corpuscular Hemoglobin Concent 32.9 Red Cell Distribution Width 13.8 Platelet Count 285 # Mean Platelet Volume 12.2 H Neutrophils % 86.7 H Lymphocytes % 11.4 L Monocytes % 1.0 Eosinophils % 0.0 Basophils % 0.2 Nucleated Red Blood Cells % 0.0 Neutrophils # 11.6 H Lymphocytes # 1.5 Monocytes # 0.1 L Eosinophils # 0.0 Basophils # 0.0 Nucleated Red Blood Cells # 0.0 Sodium Level 131 L Potassium Level 4.7 Chloride Level 99 Carbon Dioxide Level 20 L Anion Gap 17 H Blood Urea Nitrogen 27 H Creatinine 1.18 H Glucose Level 472 #*H Hemoglobin A1c 8.1 H Calcium Level 9.9 Magnesium Level 1.8 Triglycerides Level 91 Cholesterol Level 130 LDL Cholesterol, Calculated 62 HDL Cholesterol 50 Cholesterol/HDL Ratio 2.6 Thyroid Stimulating Hormone (TSH) 1.340 Bedside Glucose 425 *H 280 H Test 07/05/16 12:28 07/05/16 17:18 Bedside Glucose 236 H 141 Medications Medications Current Medications Lorazepam (Ativan) 2 mg HS PRN PO INSOMNIA Last administered on 07/04/16t 22:51 ; Admin Dose 2 MG; Start 07/04/16 at 21:30 Lorazepam (Ativan) 0.5 mg Q8H PRN PO ANXIETY; Start 07/04/16 at 21:30 Metoclopramide HCl (Reglan) 10 mg Q6H PRN IV NAUSEA AND/OR VOMITING; Start at 21:30 Nitroglycerin (Nitroglycerin (Sl Tab) 0.4 Mg) 1 tab Q5M PRN SL CHEST PAIN; Start 07/04/16 at 21:30 Acetaminophen (Tylenol Tab) 650 mg Q6H PRN PO PAIN LEVEL 1-3 OR FEVER; Start at 21:30 Acetaminophen/ Hydrocodone Bitart ([place] (5/325)) 1 tab Q6H PRN PO PAIN LEVEL 4 -6; Start 07/04/16 at 21:30 Morphine Sulfate (morphine) 2 mg Q4H PRN IV PAIN LEVEL 7-10; Start 07/04/16 at 21:30 Famotidine (Pepcid) 20 mg Q12 PO Last administered on 07/05/16 08:25; Admin Dose 20 MG; Start 07/04/16 at 21:30 Amlodipine Besylate (Norvasc) 5 mg BID PO Last administered on 07/05/16 08:26 ; Admin Dose 5 MG; Start 07/04/16 at 21:30 Aspirin (Halfprin) 81 mg DAILY PO Last administered on 07/05/16 08:25; Admin Dose 81 MG; Start 07/05/16 at 09:00 Atorvastatin Calcium (Lipitor) 40 mg HS PO ; Start 07/05/16 at 21:00 Calcium/Vitamin D (Oyster Shell/ Vit-D (500/200)) 1 tab TID PO Last administered on 07/05/16 12:29; Admin Dose 1 TAB; Start 07/05/16 at 09:00 Carvedilol (Coreg) 12.5 mg BID PO Last administered on 07/05/16 08:36; Admin Dose 12.5 MG; Start 07/04/16 at 21:30 Cholecalciferol (Vitamin D) 2,000 unit DAILY PO Last administered on 07/05/16 08:25; Admin Dose 2,000 UNIT; Start 07/05/16 at 09:00 Clopidogrel Bisulfate (plaVIX) 75 mg DAILY PO Last administered on 07/05/16 08 :25; Admin Dose 75 MG; Start 07/05/16 at 09:00 Lisinopril (Zestril) 20 mg DAILY PO Last administered on 07/05/16 08:26; Admin Dose 20 MG; Start 07/05/16 at 09:00 Montelukast Sodium (Singulair) 10 mg QHS PO ; Start 07/05/16 at 21:00 Multivitamins Therapeutic (Theragran) 1 tab DAILY PO Last administered on 08:26; Admin Dose 1 TAB; Start 07/05/16 at 09:00 Linagliptin (Tradjenta) 5 mg DAILY PO Last administered on 07/05/16 08:26; Admin Dose 5 MG; Start 07/05/16 at 09:00 Insulin Glargine (Lantus) 10 unit BID@08,20 SC Last administered on 07/05/16 08:28; Admin Dose 10 UNIT; Start 07/05/16 at 08:00 Diagnostic Test (Pha) (Accu-Chek) 1 ea 02 XX ; Start 07/06/16 at 02:00 Miscellaneous Information 1 ea NOTE XX ; Start 07/05/16 at 05:00 Glucose (Glutose) 15 gm Q15M PRN PO DECREASED GLUCOSE; Start 07/05/16 at 05:00 Glucose (Glutose) 22.5 gm Q15M PRN PO DECREASED GLUCOSE; Start 07/05/16 at 05: 00 Dextrose (D50w Syringe) 25 ml Q15M PRN IV DECREASED GLUCOSE; Start 07/05/16 at 05:00 Dextrose (D50w Syringe) 50 ml Q15M PRN IV DECREASED GLUCOSE; Start 07/05/16 at 05:00 Glucagon (Glucagen) 1 mg Q15M PRN IM DECREASED GLUCOSE; Start 07/05/16 at 05:00 Glucose (Glutose) 15 gm Q15M PRN BUCCAL DECREASED GLUCOSE; Start 07/05/16 at 05 :00 Nicotine 1 patch 1 patch DAILY@17 TRANSDERM Last administered on 07/05/16 17: 58; Admin Dose 1 PATCH; Start 07/05/16 at 17:00 Sodium Chloride (NS) 1,000 ml @ 125 mls/hr Q8H IV Last administered on 17:59; Admin Dose 125 MLS/HR; Start 07/05/16 at 17:00 Zolpidem Tartrate (Ambien) 10 mg HS PRN PO INSOMNIA; Start 07/05/16 at 17:00 Procedures Procedures PROCEDURE: CT Pulmonary Angiogram CLINICAL INDICATION: Chest pain, short of breath TECHNIQUE: Volumetric acquisition of the thorax was performed following the intravenous administration of contrast with the bolus of contrast time to maximize pulmonary artery opacification. One or more of the following dose reduction techniques were used: - Automated exposure control. - Adjustment of the mA and/or kV according to patient size. - Use of iterative reconstruction technique. Radiation Dose: CTDI = 111.57 mGy; DLP = 775.69 mGy-cm. COMPARISON: None. FINDINGS: Pulmonary Arteries: There is no intrinsic filling defect seen within the pulmonary arteries to suggest pulmonary embolization. Other cardiovascular structures: The heart is normal in size. There is left ventricular hypertrophy.. The aorta appears intact and normal in caliber. Lung stoen: The lung stone are clear with no nodule, infiltrate, or interstitial prominence. There is an accessory azygos lobe. The pleural spaces: No effusion or pneumothorax is identified. Lymph nodes: No pathologically enlarged nodes are evident. Thyroid: Unremarkable. Superior abdominal structures: No significant abnormality is evident. Osseous structures: Degenerative endplate changes are seen diffusely in the spine. IMPRESSION: 1. No evidence of pulmonary embolization. There is left ventricular hypertrophy without cardiomegaly. The aorta is normal in caliber and appears intact. 2. The lung stone and pleural spaces are clear. There is an accessory azygos lobe. 3. Mild degenerative spine changes. Physician Nael Date Time Electronically viewed and signed by Physician Nael on 07/04/2016 20:28 RH/ CC: BRISEIDA ALEMAN DO PROCEDURE: US right upper quadrant CLINICAL INDICATION: Abdominal pain TECHNIQUE: Multiple real-time images were acquired of the patient's right upper abdomen utilizing a high resolution transducer. COMPARISON: None available FINDINGS: Liver: Increased echogenicity and enlarged with normal contour no evidence of mass or ductal dilatation. Normal directional blood flow is seen within the patent main portal vein. The maximum dimension estimated at 21.3 cm . Gallbladder: Normal. No sonographic Romero's sign is reported. Common bile duct: Normal; 2.3 mm. There is no evidence for choledocholithiasis. Right Kidney: Normal; maximum length measured at approximately 11.5 cm. Pancreas: Obscured by bowel gas. RPTAT:HJJR IMPRESSION: 1. Hepatomegaly hepatic steatosis. 2. Unremarkable gallbladder. 3. Bowel gas obscures evaluation of the pancreas. Physician Deena Date Time Electronically viewed and signed by Physician Deena on 07/04/2016 19:23 / BETTINA CHOW Jul 05, 2016 18:40
[2016-07-05] MEDS: MONTELUKAST 10 MG TAB PO SCH (20:38)
[2016-07-05] MEDS: ATORVASTATIN 40 MG TAB PO SCH (20:38)
[2016-07-05] MEDS: ZOLPIDEM 5 MG TAB PO PRN (21:18)
[2016-07-06] VITALS (8 sets, daily range): BP systolic 140–161; BP diastolic 72–82; PULSE 59–85; RESP 18–20
[2016-07-06] MEDS: SOD CHLORIDE 0.9% 1,000 ML IV SCH ×3 (01:04→17:00)
[2016-07-06] MEDS: ACCU-CHEK XX SCH (01:05)
[2016-07-06] MEDS ORDERED: ACCU-CHEK XX SCH (02:00)
[2016-07-06] MEDS: morphine 2 MG INJ IV PRN ×2 (05:37→10:01)
[2016-07-06 07:06] LABS: ADD SCAN DIFF NO
[2016-07-06 07:11] LABS: ABNORMAL IP MESSAGE 1; BASOPHIL # 0.1 10^3/ul (0.0-0.1); BASOPHILS % 0.2 % (0.0-2.0); EOSINOPHILS # 0.1 10^3/ul (0.0-0.5); EOSINOPHILS % 0.2 % (0.0-7.0); HEMATOCRIT 39.2 % (37.0-47.0); HEMOGLOBIN 12.7 g/dl (12.0-16.0); LYMPHOCYTES % 19.6 % (15.0-51.0); MEAN CORPUSCULAR HEMOGLOBIN 29.4 pg (29.0-33.0); MEAN CORPUSCULAR HGB CONC 32.4 g/dl (32.0-37.0); MEAN CORPUSCULAR VOLUME 90.7 fl (82.0-101.0); MEAN PLATELET VOLUME 12.5 fl (7.4-10.4); MONOCYTE # 1.7 10^3/ul (0.3-0.9); MONOCYTES % 8.2 % (0.0-11.0); NEUTROPHIL # 14.6 10^3/ul (1.6-7.5); NEUTROPHILS % 71.4 % (39.0-77.0); PLATELET COUNT 330 10^3/UL (140-415); RED BLOOD COUNT 4.32 10^6/ul (4.20-5.40); RED CELL DISTRIBUTION WIDTH 13.8 % (11.5-14.5); WHITE BLOOD COUNT 20.5 10^3/ul (4.8-10.8)
[2016-07-06 07:27] LABS: POTASSIUM 4.1 mmol/L (3.5-5.1)
[2016-07-06 07:30] LABS: CREATININE 1.02 mg/dl (0.44-1.00)
[2016-07-06 07:31] LABS: CALCIUM 9.4 mg/dl (8.4-10.2)
[2016-07-06] MEDS: metFORMIN 500 MG TAB PO SCH (08:00)
[2016-07-06] MEDS: MULTIVITAMINS THERAPEUTIC TAB PO SCH (08:48)
[2016-07-06] MEDS: ASPIRIN (EC) 81 MG TAB PO SCH (08:48)
[2016-07-06] MEDS: LINAGLIPTIN 5 MG TABLET PO SCH (08:48)
[2016-07-06] MEDS: AMLODIPINE 5 MG TAB PO SCH ×2 (08:48→21:06)
[2016-07-06] MEDS: CHOLECALCIFEROL 2,000 UNIT CAP PO SCH (08:48)
[2016-07-06] MEDS: LEVOTHYROXINE 50 MCG TAB PO SCH (08:49)
[2016-07-06] MEDS: LISINOPRIL 20 MG TAB PO SCH (08:49)
[2016-07-06] MEDS: FAMOTIDINE 20 MG TAB PO SCH ×2 (08:51→21:06)
[2016-07-06] MEDS: CALCIUM/VITAMIN D (500/200) TAB PO SCH ×3 (08:51→21:06)
[2016-07-06] MEDS: CLOPIDOGREL 75 MG TAB PO SCH (08:51)
[2016-07-06] MEDS: INSULIN GLARGINE [LANtus] 3 ML PEN SC SCH ×2 (08:54→20:59)
[2016-07-06] MEDS: INSULIN ASPART [NOVOLOG] 3 ML PEN SC SCH ×4 (08:59→21:00)
--- NOTE | 2016-07-06 10:55 | PDOCDIS ---
Discharge Instructions CONDITION Patient Condition: Good HOME CARE INSTRUCTIONS: Special Diet: DIABETIC DIET ACTIVITY: Activity Restrictions: No Restrictions FOLLOW UP/APPOINTMENTS Appointments F/U WITH YOUR PCP IN 1-2 WEEKS GLENIS COKER Jul 06, 2016 10:55
--- NOTE | 2016-07-06 12:34 | PSY ---
Date/Time of Note Date/Time of Note DATE: 07/06/16 TIME: 12:30 Psychiatric Subjective Eval Consent Pt consented to telemedicine: Yes Subjective Evaluation Patient location: inpatient Chief Complaint: cp,ap,diarrhea since wednesday History of present illness 61 yo single female with multiple medical problmes who made a suicidal statement prio rto discharge. pt admits to feeling depressed , hopeless and helpless; she told RN she has a plan, but initially denied it to me; then prompted she says he plan is to go to sleep by taking pills, and she confirms she has a lot of pills at home. She then began to deny Si and minimizing her depresion. Denies ah or vh, denies hi. Past psychiatric history pt has been depressed since 2002 then her son was killed, she had one Sa by OD, but never was treated Hospitalization: Suicidal Attempt(s) Medical history Problems Medical Problems: (1) Chest pain Status: Acute (2) Diarrhea Status: Acute (3) Dyspnea Status: Acute Allergies: Coded Allergies: No Known Allergy (Unverified , 07/04/16) Substance Abuse Substance use: No known substance abuse Social History Marital status: Level of education: hs DPA/Conservatorship: No Occupation/Fpc: unemployed Psychiatric Objective Eval Physical Examination: Energy: Decreased Interest: Decreased Mental Status Examination: Appearance: Groomed Eye Contact: Good Psychomotor Activity: Normal Behavior: Cooperative Speech: Clear AFFECT: Depressed Mood: Depressed Though Process: Linear Thought Content: Normal Suicidal: Yes Homicidal: No On 72 hour hold: No Cognition: Alert Insight: Impared Judgement: Impared Laboratory Results Laboratory Tests Test 07/04/16 18:18 07/04/16 22:45 07/05/16 03:43 07/05/16 04:29 White Blood Count 16.910^3/ul 13.410^3/ul Red Blood Count 5.0510^6/ul 4.3510^6/ul Hemoglobin 14.8g/dl 13.0g/dl Hematocrit 45.5% 39.5% Mean Corpuscular Volume 90.1fl 90.8fl Mean Corpuscular Hemoglobin 29.3pg 29.9pg Mean Corpuscular Hemoglobin Concent 32.5g/dl 32.9g/dl Red Cell Distribution Width 13.6% 13.8% Platelet Count 25348^3/UL 69687^3/UL Mean Platelet Volume 11.9fl 12.2fl Neutrophils % 66.6% 86.7% Lymphocytes % 23.9% 11.4% Monocytes % 8.1% 1.0% Eosinophils % 0.6% 0.0% Basophils % 0.4% 0.2% Nucleated Red Blood Cells % 0.0/100WBC 0.0/100WBC Neutrophils # 11.310^3/ul 11.610^3/ul Lymphocytes # 4.010^3/ul 1.510^3/ul Monocytes # 1.410^3/ul 0.110^3/ul Eosinophils # 0.110^3/ul 0.010^3/ul Basophils # 0.110^3/ul 0.010^3/ul Nucleated Red Blood Cells # 0.010^3/ul 0.010^3/ul Sodium Level 139mmol/L 131mmol/L Potassium Level 4.3mmol/L 4.7mmol/L Chloride Level 102mmol/L 99mmol/L Carbon Dioxide Level 24mmol/L 20mmol/L Anion Gap 17 17 Blood Urea Nitrogen 20mg/dl 27mg/dl Creatinine 1.12mg/dl 1.18mg/dl Glucose Level 180mg/dl 472mg/dl Calcium Level 10.7mg/dl 9.9mg/dl Total Bilirubin 0.2mg/dl Direct Bilirubin 0.00mg/dl Indirect Bilirubin 0.2mg/dl Aspartate Amino Transf (AST/SGOT) 27IU/L Alanine Aminotransferase (ALT/SGPT) 23IU/L Alkaline Phosphatase 63IU/L Troponin I < 0.012ng/ml < 0.012ng/ml < 0.012ng/ml B-Type Natriuretic Peptide 108PG/ML Total Protein 7.4g/dl Albumin 4.0g/dl Globulin 3.40g/dl Albumin/Globulin Ratio 1.17 Lipase 71U/L Creatine Kinase 50IU/L 52IU/L Creatine Kinase Index 0.9 0.9 Creatinine Kinase MB (Mass) 0.43ng/ml 0.47ng/ml Hemoglobin A1c 8.1% Magnesium Level 1.8mg/dl Triglycerides Level 91mg/dl Cholesterol Level 130mg/dl LDL Cholesterol, Calculated 62mg/dl HDL Cholesterol 50mg/dl Cholesterol/HDL Ratio 2.6RATIO Thyroid Stimulating Hormone (TSH) 1.340MIU/L Bedside Glucose 425mg/dL Test 07/05/16 08:18 07/05/16 12:28 07/05/16 17:18 07/05/16 20:05 Bedside Glucose 280mg/dL 236mg/dL 141mg/dL 178mg/dL Test 07/06/16 05:47 07/06/16 07:25 07/06/16 11:39 White Blood Count 20.510^3/ul Red Blood Count 4.3210^6/ul Hemoglobin 12.7g/dl Hematocrit 39.2% Mean Corpuscular Volume 90.7fl Mean Corpuscular Hemoglobin 29.4pg Mean Corpuscular Hemoglobin Concent 32.4g/dl Red Cell Distribution Width 13.8% Platelet Count 50591^3/UL Mean Platelet Volume 12.5fl Neutrophils % 71.4% Lymphocytes % 19.6% Monocytes % 8.2% Eosinophils % 0.2% Basophils % 0.2% Nucleated Red Blood Cells % 0.0/100WBC Neutrophils # 14.610^3/ul Lymphocytes # 4.010^3/ul Monocytes # 1.710^3/ul Eosinophils # 0.110^3/ul Basophils # 0.110^3/ul Nucleated Red Blood Cells # 0.010^3/ul Sodium Level 134mmol/L Potassium Level 4.1mmol/L Chloride Level 102mmol/L Carbon Dioxide Level 23mmol/L Anion Gap 13 Blood Urea Nitrogen 29mg/dl Creatinine 1.02mg/dl Glucose Level 209mg/dl Calcium Level 9.4mg/dl Bedside Glucose 190mg/dL 194mg/dL Assessment and Plan Assessment/Diagnosis [place] I: MAJOR DEPRESSIVE DISORDER RECURRENT SEVERE Recommendation/Plan Medication Management DEFER TO INPT Psychotherapy DEFER TO INPT Follow-up/Disposition 5150 FOR DTS; TRANSFER TO INPT PSYCH 5150 Recommendation: RADHA Rush MD Jul 06, 2016 12:34
--- NOTE | 2016-07-06 14:33 | PN ---
Date/Time of Note Date/Time of Note DATE: 07/06/16 TIME: 14:29 Assessment/Plan VTE Prophylaxis VTE Prophylaxis Intervention: SCD's Lines/Catheters [facility] Peripheral IV Urinary Cath still in place: No Assessment/Plan Chief Complaint/Hosp Course 1. Non specific CP: ACS has been ruled out / likely 2/2 anxiety * Cath did not show CAD, patient had tortous arteries and cath was unsuccessful. NO DOCUMENTATION OF CAD * Patient had recent negative stress test with Dr Lloyd 2. Severe anxiety and depression, tele psych eval appreciated and recommendation is for transfer to psych facility, continue one-to-one sitter, downgrade to med surg 3. COPD without exacerbation 4. Poorly controlled DM2 : A1c 8.1 5. HTN: suboptimal control 6. Hypothyroidism 7. ARF r/o CKD from DM nephropathy 8. Obesity 9. Tobacco abuse 10. Leucocytosis : likely stress induced PLAN: * IV hydration and eval renal function in am * Titrate hypoglycemics and antihypertensives for better control * Transfer to psych facility, social services manager on the case * Consult cardiology and review recs * UA to eval for occult infection * Bronchodilator therapy PRN * Supportive care PROPHYLAXIS: SCDs / pepcid Problems: Subjective 24 Hr Interval Summary Constitutional: no complaints Exam/Review of Systems Vital Signs Vitals Vital Signs Date Time Temp Pulse Resp B/P Pulse Ox O2 Delivery O2 Flow Rate FiO2 07/06/16 12:00 97.5 60 20 148/73 96 07/06/16 04:26 Room Air 07/05/16 16:45 21 Intake and Output 07/05/16 07/05/16 07/06/16 15:00 23:00 07:00 Intake Total 1000 ml Output Total 1000 ml Balance 0 ml Exam Constitutional: alert, oriented Respiratory: clear to auscultation Cardiovascular: regular rate and rhythm Gastrointestinal: soft, No distended Musculoskeletal: nl extremities to inspection Results Result Diagram: 07/06/16 0547 07/06/16 0547 Results 24 hrs Laboratory Tests Test 07/05/16 17:18 07/05/16 20:05 07/06/16 05:47 07/06/16 07:25 Bedside Glucose 141 178 190 White Blood Count 20.5 #H Red Blood Count 4.32 Hemoglobin 12.7 Hematocrit 39.2 Mean Corpuscular Volume 90.7 Mean Corpuscular Hemoglobin 29.4 Mean Corpuscular Hemoglobin Concent 32.4 Red Cell Distribution Width 13.8 Platelet Count 330 Mean Platelet Volume 12.5 H Neutrophils % 71.4 Lymphocytes % 19.6 Monocytes % 8.2 Eosinophils % 0.2 Basophils % 0.2 Nucleated Red Blood Cells % 0.0 Neutrophils # 14.6 H Lymphocytes # 4.0 H Monocytes # 1.7 H Eosinophils # 0.1 Basophils # 0.1 Nucleated Red Blood Cells # 0.0 Sodium Level 134 L Potassium Level 4.1 Chloride Level 102 Carbon Dioxide Level 23 Anion Gap 13 Blood Urea Nitrogen 29 H Creatinine 1.02 H Glucose Level 209 # Calcium Level 9.4 Test 07/06/16 11:39 Bedside Glucose 194 Medications Medications Current Medications Lorazepam (Ativan) 2 mg HS PRN PO INSOMNIA Last administered on 07/04/16 22:51 ; Admin Dose 2 MG; Start 07/04/16 at 21:30 Lorazepam (Ativan) 0.5 mg Q8H PRN PO ANXIETY Last administered on 07/06/16 05: 48; Admin Dose 0.5 MG; Start 07/04/16 at 21:30 Metoclopramide HCl (Reglan) 10 mg Q6H PRN IV NAUSEA AND/OR VOMITING Last administered on 07/06/16 10:02; Admin Dose 10 MG; Start 07/04/16 at 21:30 Nitroglycerin (Nitroglycerin (Sl Tab) 0.4 Mg) 1 tab Q5M PRN SL CHEST PAIN; Start 07/04/16 at 21:30 Acetaminophen (Tylenol Tab) 650 mg Q6H PRN PO PAIN LEVEL 1-3 OR FEVER; Start at 21:30 Acetaminophen/ Hydrocodone Bitart ([place] (5/325)) 1 tab Q6H PRN PO PAIN LEVEL 4 -6; Start 07/04/16 at 21:30 Morphine Sulfate (morphine) 2 mg Q4H PRN IV PAIN LEVEL 7-10 Last administered on 07/06/16 10:01; Admin Dose 2 MG; Start 07/04/16 at 21:30 Famotidine (Pepcid) 20 mg Q12 PO Last administered on 07/06/16 08:51; Admin Dose 20 MG; Start 07/04/16 at 21:30 Amlodipine Besylate (Norvasc) 5 mg BID PO Last administered on 07/06/16 08:48 ; Admin Dose 5 MG; Start 07/04/16 at 21:30 Aspirin (Halfprin) 81 mg DAILY PO Last administered on 07/06/16 08:48; Admin Dose 81 MG; Start 07/05/16 at 09:00 Atorvastatin Calcium (Lipitor) 40 mg HS PO Last administered on 07/05/16 20:38 ; Admin Dose 40 MG; Start 07/05/16 at 21:00 Calcium/Vitamin D (Oyster Shell/ Vit-D (500/200)) 1 tab TID PO Last administered on 07/05/16 20:38; Admin Dose 1 TAB; Start 07/05/16 at 09:00 Carvedilol (Coreg) 12.5 mg BID PO Last administered on 07/06/16 08:51; Admin Dose 12.5 MG; Start 07/04/16 at 21:30 Cholecalciferol (Vitamin D) 2,000 unit DAILY PO Last administered on 07/06/16 08:48; Admin Dose 2,000 UNIT; Start 07/05/16 at 09:00 Clopidogrel Bisulfate (plaVIX) 75 mg DAILY PO Last administered on 07/06/16 08 :51; Admin Dose 75 MG; Start 07/05/16 at 09:00 Lisinopril (Zestril) 20 mg DAILY PO Last administered on 07/06/16 08:49; Admin Dose 20 MG; Start 07/05/16 at 09:00 Montelukast Sodium (Singulair) 10 mg QHS PO Last administered on 07/05/16 20: 38; Admin Dose 10 MG; Start 07/05/16 at 21:00 Multivitamins Therapeutic (Theragran) 1 tab DAILY PO Last administered on 08:48; Admin Dose 1 TAB; Start 07/05/16 at 09:00 Linagliptin (Tradjenta) 5 mg DAILY PO Last administered on 07/06/16 08:48; Admin Dose 5 MG; Start 07/05/16 at 09:00 Insulin Glargine (Lantus) 10 unit BID@08,20 SC Last administered on 07/06/16 08:54; Admin Dose 10 UNIT; Start 07/05/16 at 08:00 Diagnostic Test (Pha) (Accu-Chek) 1 ea 02 XX ; Start 07/06/16 at 02:00 Miscellaneous Information 1 ea NOTE XX ; Start 07/05/16 at 05:00 Glucose (Glutose) 15 gm Q15M PRN PO DECREASED GLUCOSE; Start 07/05/16 at 05:00 Glucose (Glutose) 22.5 gm Q15M PRN PO DECREASED GLUCOSE; Start 07/05/16 at 05: 00 Dextrose (D50w Syringe) 25 ml Q15M PRN IV DECREASED GLUCOSE; Start 07/05/16 at 05:00 Dextrose (D50w Syringe) 50 ml Q15M PRN IV DECREASED GLUCOSE; Start 07/05/16 at 05:00 Glucagon (Glucagen) 1 mg Q15M PRN IM DECREASED GLUCOSE; Start 07/05/16 at 05:00 Glucose (Glutose) 15 gm Q15M PRN BUCCAL DECREASED GLUCOSE; Start 07/05/16 at 05 :00 Nicotine 1 patch 1 patch DAILY@17 TRANSDERM Last administered on 07/05/16 17: 58; Admin Dose 1 PATCH; Start 07/05/16 at 17:00 Sodium Chloride (NS) 1,000 ml @ 125 mls/hr Q8H IV Last administered on 09:00; Admin Dose 125 MLS/HR; Start 07/05/16 at 17:00 Zolpidem Tartrate (Ambien) 10 mg HS PRN PO INSOMNIA Last administered on 21:18; Admin Dose 10 MG; Start 07/05/16 at 17:00 GLENIS COKER Jul 06, 2016 14:33
[2016-07-06] MEDS: NICOTINE (21 MG/24 HR) PATCH TRANSDERM SCH (17:22)
[2016-07-06] MEDS: HYDROCODONE/APAP (5/325) TAB PO PRN (17:25)
[2016-07-06] MEDS: MONTELUKAST 10 MG TAB PO SCH (21:05)
[2016-07-06] MEDS: ATORVASTATIN 40 MG TAB PO SCH (21:06)
[2016-07-06] MEDS: ZOLPIDEM 5 MG TAB PO PRN (21:06)
[2016-07-06] MEDS: LORAZEPAM 1 MG TAB PO PRN (23:31)
[2016-07-07] MEDS: HYDROCODONE/APAP (5/325) TAB PO PRN ×2 (00:15→09:29)
[2016-07-07 00:21] VITALS: BP 161/78; RESP 18
[2016-07-07] MEDS: SOD CHLORIDE 0.9% 1,000 ML IV SCH ×2 (01:00→08:05)
[2016-07-07] MEDS: ACCU-CHEK XX SCH (02:00)
[2016-07-07 05:34] LABS: ADD SCAN DIFF NO
[2016-07-07 05:46] LABS: BASOPHIL # 0.1 10^3/ul (0.0-0.1); BASOPHILS % 0.4 % (0.0-2.0); EOSINOPHILS # 0.2 10^3/ul (0.0-0.5); EOSINOPHILS % 1.1 % (0.0-7.0); HEMATOCRIT 38.2 % (37.0-47.0); HEMOGLOBIN 12.4 g/dl (12.0-16.0); LYMPHOCYTES # 4.4 10^3/ul (0.8-2.9); MEAN CORPUSCULAR HEMOGLOBIN 29.8 pg (29.0-33.0); MEAN CORPUSCULAR HGB CONC 32.5 g/dl (32.0-37.0); MEAN CORPUSCULAR VOLUME 91.8 fl (82.0-101.0); MEAN PLATELET VOLUME 12.2 fl (7.4-10.4); MONOCYTE # 1.2 10^3/ul (0.3-0.9); MONOCYTES % 8.6 % (0.0-11.0); NEUTROPHIL # 7.9 10^3/ul (1.6-7.5); NEUTROPHILS % 57.5 % (39.0-77.0); PLATELET COUNT 293 10^3/UL (140-415); RED BLOOD COUNT 4.16 10^6/ul (4.20-5.40); RED CELL DISTRIBUTION WIDTH 13.6 % (11.5-14.5); WHITE BLOOD COUNT 13.8 10^3/ul (4.8-10.8)
[2016-07-07 06:54] LABS: POTASSIUM 4.4 mmol/L (3.5-5.1)
[2016-07-07 06:56] LABS: CREATININE 0.98 mg/dl (0.44-1.00)
[2016-07-07 06:57] LABS: CALCIUM 9.2 mg/dl (8.4-10.2)
[2016-07-07 07:51] VITALS: BP 174/79; RESP 20
[2016-07-07] MEDS: LEVOTHYROXINE 50 MCG TAB PO SCH (07:55)
[2016-07-07] MEDS: metFORMIN 500 MG TAB PO SCH (07:55)
[2016-07-07] MEDS: INSULIN GLARGINE [LANtus] 3 ML PEN SC SCH (08:04)
[2016-07-07] MEDS: INSULIN ASPART [NOVOLOG] 3 ML PEN SC SCH ×2 (08:04→12:52)
[2016-07-07] MEDS: CALCIUM/VITAMIN D (500/200) TAB PO SCH ×2 (09:23→12:26)
[2016-07-07] MEDS: ASPIRIN (EC) 81 MG TAB PO SCH (09:23)
[2016-07-07] MEDS: LINAGLIPTIN 5 MG TABLET PO SCH (09:23)
[2016-07-07] MEDS: LISINOPRIL 20 MG TAB PO SCH (09:24)
[2016-07-07] MEDS: CHOLECALCIFEROL 2,000 UNIT CAP PO SCH (09:24)
[2016-07-07] MEDS: FAMOTIDINE 20 MG TAB PO SCH (09:24)
[2016-07-07] MEDS: CLOPIDOGREL 75 MG TAB PO SCH (09:24)
[2016-07-07] MEDS: MULTIVITAMINS THERAPEUTIC TAB PO SCH (09:24)
[2016-07-07] MEDS: AMLODIPINE 5 MG TAB PO SCH (09:25)
--- NOTE | 2016-07-07 16:10 | PSY ---
Date/Time of Note Date/Time of Note DATE: 07/07/16 TIME: 13:26 Psychiatric Subjective Eval Consent Pt consented to telemedicine: Yes Subjective Evaluation Patient location: inpatient Chief Complaint: cp,ap,diarrhea since wednesday Reason for consult: D/W WITH STANLEY Michel: DR COKER REQUESTED RE-EVAL JOSE ROBERTO THE PATIENT INSIST History of present illness PT IS 61 yo female with ultiple medical problems and hx chronic untreated depression since the of her sone in 2005 was seen by this literary writer on . at that time a 5150 and inpt psychiatric transfer was recommended because the patient told to rn prior to discharge she does not want to go back to her daughter's house and is depressed and suicidal with a plan to od on all her meds. to me at that time she made statements what she is always suicidal, and she is not suicidal at the same time, she states she "misspoke', she sauid she is sucidal because she was given morphine. she admits to feeling hopeless and helpless. today she says she is not suicidal because she takes care of her dad and lvoes her grandchildren. Past psychiatric history no treatment. pt odd on meds in 2005 after her son's Hospitalization: Suicidal Attempt(s) Medical history Problems Medical Problems: (1) Chest pain Status: Acute (2) Diarrhea Status: Acute (3) Dyspnea Status: Acute Allergies: Coded Allergies: No Known Allergy (Unverified , 07/04/16) Social History Marital status: Level of education: hs DPA/Conservatorship: No Occupation/Care Home: unemployed Psychiatric Objective Eval Mental Status Examination: Appearance: Groomed Eye Contact: Good Psychomotor Activity: Normal Behavior: Cooperative, Guarded Speech: Clear Mood: Depressed Though Process: Linear Thought Content: Normal Suicidal: No Homicidal: No On 72 hour hold: No Orientation: x4 Cognition: Drowsy Insight: Impared Laboratory Results Laboratory Tests Test 07/05/16 17:18 07/05/16 20:05 07/06/16 05:47 07/06/16 07:25 Bedside Glucose 141mg/dL 178mg/dL 190mg/dL White Blood Count 20.510^3/ul Red Blood Count 4.3210^6/ul Hemoglobin 12.7g/dl Hematocrit 39.2% Mean Corpuscular Volume 90.7fl Mean Corpuscular Hemoglobin 29.4pg Mean Corpuscular Hemoglobin Concent 32.4g/dl Red Cell Distribution Width 13.8% Platelet Count 47857^3/UL Mean Platelet Volume 12.5fl Neutrophils % 71.4% Lymphocytes % 19.6% Monocytes % 8.2% Eosinophils % 0.2% Basophils % 0.2% Nucleated Red Blood Cells % 0.0/100WBC Neutrophils # 14.610^3/ul Lymphocytes # 4.010^3/ul Monocytes # 1.710^3/ul Eosinophils # 0.110^3/ul Basophils # 0.110^3/ul Nucleated Red Blood Cells # 0.010^3/ul Sodium Level 134mmol/L Potassium Level 4.1mmol/L Chloride Level 102mmol/L Carbon Dioxide Level 23mmol/L Anion Gap 13 Blood Urea Nitrogen 29mg/dl Creatinine 1.02mg/dl Glucose Level 209mg/dl Calcium Level 9.4mg/dl Test 07/06/16 11:39 07/06/16 17:07 07/06/16 20:50 07/07/16 05:10 Bedside Glucose 194mg/dL 181mg/dL 152mg/dL White Blood Count 13.810^3/ul Red Blood Count 4.1610^6/ul Hemoglobin 12.4g/dl Hematocrit 38.2% Mean Corpuscular Volume 91.8fl Mean Corpuscular Hemoglobin 29.8pg Mean Corpuscular Hemoglobin Concent 32.5g/dl Red Cell Distribution Width 13.6% Platelet Count 07928^3/UL Mean Platelet Volume 12.2fl Neutrophils % 57.5% Lymphocytes % 32.0% Monocytes % 8.6% Eosinophils % 1.1% Basophils % 0.4% Nucleated Red Blood Cells % 0.0/100WBC Neutrophils # 7.910^3/ul Lymphocytes # 4.410^3/ul Monocytes # 1.210^3/ul Eosinophils # 0.210^3/ul Basophils # 0.110^3/ul Nucleated Red Blood Cells # 0.010^3/ul Sodium Level 134mmol/L Potassium Level 4.4mmol/L Chloride Level 101mmol/L Carbon Dioxide Level 23mmol/L Anion Gap 14 Blood Urea Nitrogen 24mg/dl Creatinine 0.98mg/dl Glucose Level 266mg/dl Calcium Level 9.2mg/dl Test 07/07/16 07:57 07/07/16 12:25 Bedside Glucose 223mg/dL 203mg/dL Assessment and Plan Assessment/Diagnosis [place] I: major depressive disorder, recurrent sever Recommendation/Plan Medication Management defer to inpt Psychotherapy defer to inpt Follow-up/Disposition per pet team - if pt is not holdable she can be discharged RADHA Giang MD Jul 07, 2016 13:36
--- NOTE | 2016-07-07 18:25 | DS ---
DATE OF ADMISSION: 07/04/2016 DATE OF DISCHARGE: 07/07/2016 Of note, the patient left AMA. DISCHARGE DIAGNOSES: 1. Nonspecific chest pain. Acute coronary syndrome ruled out. Most likely secondary to anxiety. Patient is status post heart catheterization that did not show any coronary artery disease. 2. Severe anxiety and depression. The patient did have a tele psych evaluation. Recommendation wa s for transfer to psych facility. A hold was not placed. The patient did elope. 3. History of chronic obstructive pulmonary disease. 4. Poorly controlled diabetes. 5. Hypertension. 6. Hyperthyroidism. 7. Obesity. 8. Tobacco abuse. 9. Chronic kidney disease, likely from diabetes and hypertension. 10. Leukocytosis, likely stress-induced. HOSPITAL COURSE: The patient is a 61-year-old female with a history of diabetes, hypertension, hypo thyroidism, obesity, anxiety, depression. The patient presented with chest pain, was felt to be mus culoskeletal in source. Patient reportedly had a history of a catheterization but did not have any reports of any coronary artery disease. The patient had a recent negative stress test with Dr. Bere harmon. The patient did have severe anxiety and depression and she did have a tele psych eval. Psych s tudy was for the patient to be transferred to a psychiatric facility for evaluation of the depressio n and suicidal ideation. The patient did have a repeat psych eval that suggested the same. No hold was recommended for the patient, and the patient did ultimately elope. child abuse worker was aware. O n the day the patient left AMA, the patient denied to myself any suicidal ideation. Reportedly had told the psychiatrist and the oncology social work that she was depressed and did have suicidal ideation an d was considering a plan of taking pills. But once again to myself, she denied any suicide ideation and was very adamant about going home. On the day the patient left AMA, the patient's vitals, labs, and physical exam were stable. CONDITION ON DISCHARGE: The patient eloped but appeared to be stable from a medicine standpoint, bu t per tele psych, the patient was depressed and recommendation once again was for a tele psych eval. DISPOSITION: The patient eloped. MEDICATIONS: The patient eloped. The patient does have home medications. No prescriptions were gi colton. FOLLOWUP: No followup instructions were given as the patient once again eloped. Dictated By: GLENIS CORTES/NTS Conf#: [id number] DID#: [id number]
== END 2016-07-07 13:40 | disposition left against medical advice (07) ==
LOC: E/R 17:08 → MS4 20:54 → MS2 07-06 23:15
PROVIDERS: ADMIT Family Medicine; ATTEND Family Medicine
DX: R07.9 Chest pain, unspecified (principal); R06.00 Dyspnea, unspecified; J44.9 Chronic obstructive pulmonary disease, unspecified; F41.9 Anxiety disorder, unspecified; G47.00 Insomnia, unspecified; R19.7 Diarrhea, unspecified; E11.9 Type 2 diabetes mellitus without complications; I10 Essential (primary) hypertension; E03.9 Hypothyroidism, unspecified; F41.8 Other specified anxiety disorders; F17.200 Nicotine dependence, unspecified, uncomplicated
CPT/HCPCS: 71275; 76705; 80048; 80053; 80061; 82550; 82553; 82962; 83036; 83690; 83735; 83880; 84443; 84484; 85025; 87400; 93005; 94640; 94644; 94664; 96360; 96361; 96372; 96374; 96375; 96376; J1170; J1815; J2270; J2405; J2765; J2930; J7030; Q9967; Z7500; Z7502; Z7610; G0378

== ENCOUNTER 2017-09-11 11:53 | Emergency (ER) | END 2017-09-11 15:41 | disposition home or self-care (01) ==

== ENCOUNTER → 2018-03-11 | Outpatient (CLI) | payer OTHER ==
[~2018-03-11] MED LIST changes: -ALBU18HF IH; +ALBU18HF INHALATION; +ALPR1TAB7 PO; -AMLO-147 PO; +AMLO5TAB4 PO; -ASPI-805 PO; +ASPI81TA16 PO; -BUPR100T14 PO; +CALC1TAB93 PO; -CALC600T PO; +CLOP75TA19 PO; -CLOP75TA4 PO; -GABA300C16 PO; +GLIM2TAB PO; -GLIM4TAB PO; +IPRA4AER INHALATION; +LEVO50TA7 PO; -LEVO50TA74 PO; +LISI-471 PO; -LISI20TA11 PO; -METF1000 PO; +METF100010 PO; -METO10TA92 PO; +MONT10TA24 PO; +MULT-761 PO; -OMEP40CA6 PO; +PANT40TA3 PO; -RISP1TAB3 PO; +SITA100T11 PO; -SITA50TA2 PO
== END | disposition home or self-care (01) ==
LOC: C/S 09:40
PROVIDERS: ATTEND Internal Medicine Interventional Cardiology
DX: R06.02 Shortness of breath (principal)